=== PATIENT | male | born 1950 | race Caucasian/White ===

== ENCOUNTER 2021-05-08 15:10 | Emergency (ER) | payer MEDICARE, OTHER, SELFPAY ==
[2021-05-08 15:41] VITALS: BP 125/85; PULSE 94; RESP 20; TEMP 36.2; O2SAT 96; BMI 25.8
== END 2021-05-09 01:35 | disposition left against medical advice (07) ==
PROVIDERS: Emergency Provider Emergency Medicine
DX: R29.6 Repeated falls (principal)
CPT/HCPCS: 99282